=== PATIENT | female | born 2000 | race African-American/Black ===

== ENCOUNTER 2020-11-03 10:38 | Emergency (ER) | payer MEDICAID ==
[~2020-11-03] VITALS: Ht 172.7 cm; Wt 82.0 kg
[2020-11-03 10:43] VITALS: BP 121/78
[2020-11-03] MEDS ORDERED: ACETAMINOPHEN 325MG TABLET PO ONE (11:15)
[2020-11-03] MEDS ORDERED: ACET-2708 MT (13:07)
== END 2020-11-03 13:37 | disposition home or self-care (01) ==
LOC: ER 10:38
DX: O99.891 Other specified diseases and conditions complicating pregnancy (principal); S52.124A Nondisplaced fracture of head of right radius, initial encounter for closed fracture; M25.422 Effusion, left elbow; Z3A.10 10 weeks gestation of pregnancy; Y92.89 Other specified places as the place of occurrence of the external cause; W18.39XA Other fall on same level, initial encounter; Y93.89 Activity, other specified
CPT/HCPCS: 29105; 73080; 99283